=== PATIENT | female | born 1970 | race Caucasian/White ===

== ENCOUNTER 2023-07-30 06:39 | Day surgery (SDC) | payer OTHER ==
[~2023-07-30 06:39] MED LIST: SODIUM CHLORIDE 0.9% 1,000 ML IV ONE; SODIUM CHLORIDE 0.9% 1,000 ML ONE
[2023-07-30] MEDS ORDERED: PLEC3TAB2 PO (06:56)
[2023-07-30] MEDS ORDERED: SITA25 PO (06:56)
[2023-07-30] MEDS ORDERED: PANT-31 PO (06:56)
[2023-07-30] MEDS ORDERED: METF-1211 PO (06:56)
[2023-07-30] MEDS ORDERED: DICY20TA95 PO (06:56)
[2023-07-30] MEDS ORDERED: TERB250T90 PO (06:56)
[2023-07-30] MEDS ORDERED: METO25 PO (06:56)
[2023-07-30] MEDS ORDERED: ATOR40TA28 PO (06:57)
[2023-07-30] MEDS ORDERED: TOPI25 PO (06:57)
[2023-07-30] MEDS ORDERED: FLUO20CA36 PO (06:57)
[2023-07-30 07:36] LABS: GLUCOMETER DEV NAME(LOC) SDS.; GLUCOSE,POINT OF CARE 98 MG/DL (70-110)
[2023-07-30] MEDS ORDERED: PROPOFOL 1% 20 ML VIAL IVP ONE (12:00)
[2023-07-30] MEDS ORDERED: LIDOCAINE/PF 2% 5 ML VIAL IM ONE (12:00)
== END 2023-07-30 09:50 | disposition home or self-care (01) ==
LOC: SURGERY 06:39
PROVIDERS: ATTEND Internal Medicine Gastroenterology
DX: K29.70 Gastritis, unspecified, without bleeding (principal); K44.9 Diaphragmatic hernia without obstruction or gangrene; E78.00 Pure hypercholesterolemia, unspecified; E11.9 Type 2 diabetes mellitus without complications; I10 Essential (primary) hypertension; Z79.899 Other long term (current) drug therapy; Z98.890 Other specified postprocedural states
CPT/HCPCS: 43239; 88305; 82962; 88312; 88313; C1769; J2704; J3490; J7030